=== PATIENT | male | born 1965 | race Caucasian/White ===

== ENCOUNTER 2024-06-30 19:46 | Inpatient (IN) | payer OTHER, BC ==
[~2024-06-30] VITALS: Ht 175.3 cm; Wt 74.1 kg
[2024-06-30 19:54] VITALS: BP_SYST 73; PULSE 123; RESP 25; TEMP 98; O2SAT 92
[2024-06-30] MEDS: NACL 0.9% 1,000 ML IV ONE ×2 (20:06→20:56)
[2024-06-30] MEDS: PANTOPRAZOLE SODIUM 40 MG/VIAL (PROTONIX) IVP ONE (20:07)
[2024-06-30 20:08] LABS: BASOPHILS # (AUTO) 0.1 K/uL (0.0-0.2); BASOPHILS % (AUTO) 0.9 % (0.0-2.0); HEMATOCRIT 40.2 % (36-54); HEMOGLOBIN 13.7 g/dL (14.0-18.0); LYMPHOCYTES # (AUTO) 1.3 K/uL (1.0-5.5); MEAN CORPUSCULAR HEMOGLOBIN 33 pg (27-31); MEAN CORPUSCULAR HGB CONC 34 % (32-36); MEAN CORPUSCULAR VOLUME 97 fL (79.0-98.0); MONOCYTES # (AUTO) 1.1 K/uL (0.0-1.0); MONOCYTES % (AUTO) 14.3 % (1.7-9.3); NEUTROPHILS # (AUTO) 4.9 K/uL (1.8-7.7); NEUTROPHILS % (AUTO) 66.8 % (40.0-70.0); PLATELET COUNT (AUTO) 255 K/uL (130-430); RED BLOOD CELL COUNT(AUTO) 4.14 MIL/uL (4.2-6.2); RED CELL DISTRIBUTION WIDTH 14.8 % (9.0-15.0); WHITE BLOOD COUNT (AUTO) 7.4 K/uL (4.8-10.8)
[2024-06-30 20:29] LABS: PROTHROMBIN TIME 10.4 SECS (9.5-12.5)
[2024-06-30 20:35] LABS: ALANINE AMINOTRANSFERASE 45 U/L (12-78); ALBUMIN 3.2 g/dL (3.4-4.8); ALCOHOL, BLOOD 286 mg/dL (<10); ANION GAP 21 (5-15); ASPARTATE AMINOTRANSFERASE 67 U/L (10-37); BILIRUBIN,DIRECT 0.4 mg/dL (0.0-0.3); CALCIUM 8.3 mg/dL (8.4-11.0); CARBON DIOXIDE 21 mmol/L (23-29); CHLORIDE 102 mmol/L (98-107); CREATININE 1.08 mg/dL (0.55-1.30); GFR AFRICAN AMERICAN 90 mL/min (>90); GLUCOSE 87 mg/dL (74-106); SODIUM SERUM 144 mmol/L (136-145); TOTAL BILIRUBIN 1.4 mg/dL (0.0-1.0); TOTAL PROTEIN, SERUM 6.5 g/dL (6.4-8.3); UREA NITROGEN, BLOOD 10 mg/dL (8-21)
[2024-06-30 20:38] LABS: GFR NON AFRICAN-AMERICAN 75 mL/min (>90)
[2024-06-30 20:39] LABS: POTASSIUM 2.9 mmol/L (3.5-5.1)
[2024-06-30] MEDS ORDERED: ASPI-1393 PO (21:34)
[2024-06-30] MEDS ORDERED: APIX2.5T PO (21:34)
[2024-06-30] MEDS: POTASSIUM CHLORIDE 20 MEQ/PKT PACKET PO ONE (21:47)
[2024-06-30] MEDS: FOLIC ACID 1 MG, THIAMINE HCL 100 MG, MAGNESIUM SULFATE 1 GM, MVI 10 ML in NACL 0.9% 1,... IV ONE (22:24)
[2024-06-30] MEDS ORDERED: MVI 10 ML VIAL IV ONE (22:24)
[2024-06-30] MEDS ORDERED: MAGNESIUM SULFATE 1 GM/2 ML VIAL ONE (22:24)
[2024-06-30] MEDS ORDERED: THIAMINE HCL 200 MG/2 ML VIAL ONE (22:24)
[2024-06-30] MEDS ORDERED: FOLIC ACID 5 MG/ML VIAL IV ONE (22:24)
[2024-06-30] MEDS ORDERED: ONDANSETRON HCL 4 MG/2 ML VIAL IVP PRN (22:45)
[2024-06-30] MEDS: POTASSIUM CHLORIDE 20 MEQ TABLET.ER PO ONE (22:54)
[2024-06-30] MEDS: chlordiazePOXIDE HCL 10 MG CAPSULE PO SCH (23:18)
[2024-06-30] MEDS: APIXABAN 2.5 MG TABLET PO SCH (23:21)
[2024-07-01 00:26] VITALS: BP_SYST 126; PULSE 99; RESP 18; TEMP 98.8
[2024-07-01 00:33] LABS: BILIRUBIN,URINE NEGATIVE (NEGATIVE); BLOOD, URINE NEGATIVE (NEGATIVE); CLARITY/URINE CLEAR (CLEAR); COLOR,URINE YELLOW (YELLOW); GLUCOSE,URINE NEGATIVE (NEGATIVE); KETONES,URINE 2+ (NEGATIVE); LEUKOCYTE ESTERASE ,URINE NEGATIVE (NEGATIVE); NITRITE, URINE NEGATIVE (NEGATIVE); PROTEIN URINE TRACE (NEGATIVE)
[2024-07-01 00:45] LABS: BACTERIA,URINE None Seen /HPF (None Seen); RBC,URINE 0-3 /HPF (0-3); WBC,URINE 0-3 /HPF (0-3)
[2024-07-01 06:27] LABS: BASOPHILS % (AUTO) 0.5 % (0.0-2.0); EOSINOPHILS % (AUTO) 0.2 % (0.0-4.0); HEMATOCRIT 37.4 % (36-54); HEMOGLOBIN 12.5 g/dL (14.0-18.0); LYMPHOCYTES % (AUTO) 22.5 % (20.5-51.5); MEAN CORPUSCULAR HEMOGLOBIN 33 pg (27-31); MEAN CORPUSCULAR HGB CONC 33 % (32-36); MEAN CORPUSCULAR VOLUME 99 fL (79.0-98.0); MONOCYTES # (AUTO) 1.3 K/uL (0.0-1.0); MONOCYTES % (AUTO) 14.9 % (1.7-9.3); NEUTROPHILS # (AUTO) 5.6 K/uL (1.8-7.7); NEUTROPHILS % (AUTO) 61.9 % (40.0-70.0); PLATELET COUNT (AUTO) 233 K/uL (130-430); RED CELL DISTRIBUTION WIDTH 14.9 % (9.0-15.0)
[2024-07-01 06:35] LABS: ALBUMIN 2.8 g/dL (3.4-4.8); CALCIUM 7.4 mg/dL (8.4-11.0); CREATININE 0.71 mg/dL (0.55-1.30); POTASSIUM 3.6 mmol/L (3.5-5.1); TOTAL BILIRUBIN 1.4 mg/dL (0.0-1.0); TOTAL PROTEIN, SERUM 5.8 g/dL (6.4-8.3)
[2024-07-01 07:40] VITALS: BP_SYST 161; PULSE 93; RESP 18; TEMP 99; O2SAT 99
[2024-07-01] MEDS: FAMOTIDINE 20 MG TABLET PO SCH (08:45)
[2024-07-01] MEDS: ASPIRIN 81 MG TABLET(ECOTRIN) PO SCH (08:45)
[2024-07-01] MEDS: THIAMINE HCL 100 MG TABLET PO SCH (08:45)
[2024-07-01] MEDS: FOLIC ACID 1 MG TABLET PO SCH (08:45)
[2024-07-01 12:38] VITALS: BP_SYST 168; PULSE 100; RESP 18; TEMP 98.3; O2SAT 100
[2024-07-01] MEDS ORDERED: cloNIDine HCL 0.1 MG TABLET PO PRN (13:00)
[2024-07-01] MEDS: METOPROLOL TARTRATE 50 MG TABLET PO SCH (13:13)
[2024-07-01] MEDS ORDERED: ACETAMINOPHEN 650 MG SUPP.RECT RC PRN ×2 (15:00)
[2024-07-01] MEDS ORDERED: ACETAMINOPHEN 325 MG TABLET PO PRN ×2 (15:00)
[2024-07-01 16:00] VITALS: BP_SYST 152; PULSE 86; RESP 18; TEMP 97.8; O2SAT 96
[2024-07-01] MEDS: chlordiazePOXIDE HCL 25 MG CAPSULE PO SCH (16:21)
[2024-07-01 20:20] VITALS: BP_SYST 154; PULSE 84; RESP 20; TEMP 97.1; O2SAT 97
[2024-07-01 22:20] VITALS: O2SAT 97
[2024-07-02 01:26] VITALS: BP_SYST 159; PULSE 78; RESP 18; TEMP 97.5; O2SAT 96
[2024-07-02 06:54] LABS: BASOPHILS % (AUTO) 0.5 % (0.0-2.0); EOSINOPHILS % (AUTO) 0.4 % (0.0-4.0); HEMATOCRIT 40.2 % (36-54); HEMOGLOBIN 13.5 g/dL (14.0-18.0); LYMPHOCYTES # (AUTO) 1.2 K/uL (1.0-5.5); LYMPHOCYTES % (AUTO) 17.5 % (20.5-51.5); MEAN CORPUSCULAR HEMOGLOBIN 33 pg (27-31); MEAN CORPUSCULAR HGB CONC 34 % (32-36); MEAN CORPUSCULAR VOLUME 99 fL (79.0-98.0); MONOCYTES # (AUTO) 1.1 K/uL (0.0-1.0); NEUTROPHILS # (AUTO) 4.7 K/uL (1.8-7.7); NEUTROPHILS % (AUTO) 66.6 % (40.0-70.0); PLATELET COUNT (AUTO) 219 K/uL (130-430); RED BLOOD CELL COUNT(AUTO) 4.07 MIL/uL (4.2-6.2)
[2024-07-02 07:11] LABS: ALBUMIN 3.1 g/dL (3.4-4.8); CALCIUM 8.8 mg/dL (8.4-11.0); CREATININE 0.76 mg/dL (0.55-1.30); POTASSIUM 3.3 mmol/L (3.5-5.1); TOTAL BILIRUBIN 1.6 mg/dL (0.0-1.0); TOTAL PROTEIN, SERUM 6.7 g/dL (6.4-8.3)
[2024-07-02 08:00] VITALS: BP_SYST 139; PULSE 85; RESP 17; TEMP 98; O2SAT 97
[2024-07-02 11:01] VITALS: BP_SYST 133; PULSE 76; RESP 16; TEMP 97.7; O2SAT 97
[2024-07-02] MEDS: POTASSIUM CHLORIDE 20 MEQ TABLET.ER PO ONE (11:44)
[2024-07-02 15:02] VITALS: BP_SYST 123; PULSE 67; RESP 16; TEMP 97.7; O2SAT 98
[2024-07-02 20:00] VITALS: BP_SYST 132; PULSE 85; RESP 18; TEMP 98.8; O2SAT 96
[2024-07-02] MEDS: MULTIVITAMINS TAB 1 TABLET PO SCH (20:06)
[2024-07-02] MEDS: LORazepam 2 MG/ML VIAL IVP PRN (23:08)
[2024-07-03] VITALS: BP_SYST 139; RESP 18; TEMP 98; O2SAT 97
[2024-07-03] MEDS: HALOPERIDOL LACTATE 5 MG/ML VIAL IM PRN (01:25)
[2024-07-03 08:00] VITALS: BP_SYST 138; PULSE 67; RESP 17; TEMP 97.8; O2SAT 99
[2024-07-03 08:28] LABS: BASOPHILS % (AUTO) 0.7 % (0.0-2.0); EOSINOPHILS % (AUTO) 0.6 % (0.0-4.0); HEMATOCRIT 40.4 % (36-54); HEMOGLOBIN 13.6 g/dL (14.0-18.0); LYMPHOCYTES # (AUTO) 1.2 K/uL (1.0-5.5); LYMPHOCYTES % (AUTO) 19.3 % (20.5-51.5); MEAN CORPUSCULAR HEMOGLOBIN 33 pg (27-31); MEAN CORPUSCULAR HGB CONC 34 % (32-36); MEAN CORPUSCULAR VOLUME 99 fL (79.0-98.0); MONOCYTES # (AUTO) 0.9 K/uL (0.0-1.0); MONOCYTES % (AUTO) 13.8 % (1.7-9.3); NEUTROPHILS # (AUTO) 4.2 K/uL (1.8-7.7); NEUTROPHILS % (AUTO) 65.6 % (40.0-70.0); PLATELET COUNT (AUTO) 193 K/uL (130-430); RED BLOOD CELL COUNT(AUTO) 4.07 MIL/uL (4.2-6.2); RED CELL DISTRIBUTION WIDTH 14.7 % (9.0-15.0); WHITE BLOOD COUNT (AUTO) 6.4 K/uL (4.8-10.8)
[2024-07-03 08:38] VITALS: O2SAT 100
[2024-07-03 08:54] LABS: ALBUMIN 3.1 g/dL (3.4-4.8); CALCIUM 9.1 mg/dL (8.4-11.0); CREATININE 0.74 mg/dL (0.55-1.30); POTASSIUM 3.5 mmol/L (3.5-5.1); TOTAL PROTEIN, SERUM 6.7 g/dL (6.4-8.3)
[2024-07-03] MEDS: POTASSIUM CHLORIDE 20 MEQ TABLET.ER PO SCH (08:56)
[2024-07-03 11:09] VITALS: BP_SYST 135; PULSE 78; RESP 16; TEMP 97.7; O2SAT 96
[2024-07-03] MEDS: chlordiazePOXIDE HCL 25 MG CAPSULE PO SCH (12:46)
[2024-07-03] MEDS: MAGNESIUM SULFATE 50 ML IV ONE (12:47)
[2024-07-03 15:29] VITALS: BP_SYST 132; PULSE 69; RESP 16; TEMP 97.1; O2SAT 99
[2024-07-03 20:00] VITALS: BP_SYST 118; PULSE 63; RESP 18; TEMP 98; O2SAT 97
[2024-07-04 00:30] VITALS: BP_SYST 146; PULSE 85; RESP 19; TEMP 98; O2SAT 98
[2024-07-04 11:15] VITALS: BP_SYST 150; PULSE 96; RESP 16; TEMP 98.7; O2SAT 99
[2024-07-04 14:35] VITALS: BP_SYST 132; PULSE 103; RESP 16; TEMP 98.8; O2SAT 97
[2024-07-04 15:04] VITALS: BP_SYST 142; PULSE 82; RESP 15; TEMP 97.7; O2SAT 93
[2024-07-04 20:00] VITALS: BP_SYST 154; PULSE 91; RESP 16; TEMP 98.8; O2SAT 94; O2SAT 97
[2024-07-04] MEDS: HALOPERIDOL 5 MG TABLET (HALDOL) PO SCH (21:12)
[2024-07-05 06:56] LABS: BASOPHILS % (AUTO) 0.8 % (0.0-2.0); HEMATOCRIT 42.3 % (36-54); HEMOGLOBIN 14.2 g/dL (14.0-18.0); LYMPHOCYTES # (AUTO) 1.1 K/uL (1.0-5.5); MEAN CORPUSCULAR HEMOGLOBIN 33 pg (27-31); MEAN CORPUSCULAR HGB CONC 34 % (32-36); MEAN CORPUSCULAR VOLUME 99 fL (79.0-98.0); MONOCYTES # (AUTO) 0.8 K/uL (0.0-1.0); MONOCYTES % (AUTO) 17.1 % (1.7-9.3); NEUTROPHILS # (AUTO) 2.7 K/uL (1.8-7.7); NEUTROPHILS % (AUTO) 57.1 % (40.0-70.0); PLATELET COUNT (AUTO) 232 K/uL (130-430); RED BLOOD CELL COUNT(AUTO) 4.26 MIL/uL (4.2-6.2); RED CELL DISTRIBUTION WIDTH 14.8 % (9.0-15.0); WHITE BLOOD COUNT (AUTO) 4.8 K/uL (4.8-10.8)
[2024-07-05 07:20] LABS: ALBUMIN 3.1 g/dL (3.4-4.8); CALCIUM 9.2 mg/dL (8.4-11.0); CREATININE 0.68 mg/dL (0.55-1.30); POTASSIUM 3.9 mmol/L (3.5-5.1); TOTAL BILIRUBIN 0.9 mg/dL (0.0-1.0); TOTAL PROTEIN, SERUM 7.2 g/dL (6.4-8.3)
[2024-07-05 08:50] VITALS: O2SAT 97
[2024-07-05 11:17] VITALS: BP_SYST 141; PULSE 88; RESP 16; TEMP 97.7; O2SAT 96
[2024-07-05] MEDS: HYDROmorphone 2 MG/ML VIAL ONE (14:51)
[2024-07-05 15:25] VITALS: BP_SYST 125; PULSE 76; RESP 16; TEMP 96.3; O2SAT 93
[2024-07-05 20:00] VITALS: BP_SYST 123; PULSE 86; RESP 16; TEMP 97.6; O2SAT 98
[2024-07-05] MEDS: HALOPERIDOL 5 MG TABLET (HALDOL) PO SCH (20:25)
[2024-07-05] MEDS: chlordiazePOXIDE HCL 25 MG CAPSULE PO SCH (20:26)
[2024-07-06] VITALS: BP_SYST 108; PULSE 77; RESP 18; O2SAT 96
[2024-07-06 07:23] LABS: BASOPHILS % (AUTO) 0.6 % (0.0-2.0); EOSINOPHILS # (AUTO) 0.1 K/uL (0.0-0.4); HEMOGLOBIN 14.6 g/dL (14.0-18.0); LYMPHOCYTES # (AUTO) 1.5 K/uL (1.0-5.5); LYMPHOCYTES % (AUTO) 23.6 % (20.5-51.5); MEAN CORPUSCULAR HEMOGLOBIN 33 pg (27-31); MEAN CORPUSCULAR HGB CONC 33 % (32-36); MEAN CORPUSCULAR VOLUME 99 fL (79.0-98.0); MONOCYTES # (AUTO) 1.1 K/uL (0.0-1.0); MONOCYTES % (AUTO) 18.5 % (1.7-9.3); NEUTROPHILS # (AUTO) 3.5 K/uL (1.8-7.7); NEUTROPHILS % (AUTO) 56.3 % (40.0-70.0); PLATELET COUNT (AUTO) 271 K/uL (130-430); RED BLOOD CELL COUNT(AUTO) 4.46 MIL/uL (4.2-6.2); WHITE BLOOD COUNT (AUTO) 6.2 K/uL (4.8-10.8)
[2024-07-06 08:00] VITALS: BP_SYST 114; PULSE 69; RESP 16; TEMP 97.2; O2SAT 97
[2024-07-06 08:01] LABS: ALBUMIN 3.1 g/dL (3.4-4.8); CALCIUM 9.2 mg/dL (8.4-11.0); CREATININE 0.79 mg/dL (0.55-1.30); POTASSIUM 3.9 mmol/L (3.5-5.1); TOTAL BILIRUBIN 0.7 mg/dL (0.0-1.0); TOTAL PROTEIN, SERUM 7.1 g/dL (6.4-8.3)
[2024-07-06 09:30] VITALS: O2SAT 97
[2024-07-06 12:40] VITALS: BP_SYST 126; PULSE 77; RESP 18; TEMP 97.3; O2SAT 96
[2024-07-06 16:25] VITALS: BP_SYST 146; BP_SYST 147; PULSE 84; RESP 24; O2SAT 96
[2024-07-06 20:00] VITALS: BP_SYST 128; PULSE 85; RESP 18; TEMP 97.5; O2SAT 96
[2024-07-06] MEDS: BENZTROPINE MESYLATE 1 MG TABLET PO SCH (20:32)
[2024-07-06] MEDS ORDERED: QUEtiapine FUMARATE 25 MG TABLET PO SCH (21:00)
[2024-07-07 00:05] VITALS: BP_SYST 130; PULSE 85; RESP 18; TEMP 98.8; O2SAT 97
[2024-07-07] MEDS: QUEtiapine FUMARATE 25 MG TABLET PO ONE (00:16)
[2024-07-07 07:49] VITALS: O2SAT 99
[2024-07-07 12:35] VITALS: BP_SYST 111; PULSE 75; RESP 18; TEMP 97.5; O2SAT 95
[2024-07-07 16:41] VITALS: BP_SYST 120; PULSE 83; RESP 16; TEMP 96.8; O2SAT 97
[2024-07-07] MEDS: chlordiazePOXIDE HCL 25 MG CAPSULE PO SCH (17:18)
[2024-07-07] MEDS: QUEtiapine FUMARATE 25 MG TABLET PO SCH (17:20)
[2024-07-07 20:00] VITALS: BP_SYST 136; PULSE 80; RESP 17; TEMP 96.5; O2SAT 97
[2024-07-08] VITALS (7 sets, daily range): BP systolic 114–135; PULSE 78–99; RESP 15–18; TEMP 96.6–98.6; O2SAT 95–100
[2024-07-09] VITALS: BP_SYST 111; PULSE 84; RESP 18; TEMP 97.3
[2024-07-09 08:45] VITALS: BP_SYST 111; PULSE 76; RESP 16; TEMP 96.9; O2SAT 95
[2024-07-09 16:25] VITALS: BP_SYST 125; PULSE 81; RESP 16; TEMP 96.8; O2SAT 95
[2024-07-09 20:28] VITALS: BP_SYST 132; PULSE 74; TEMP 96.3; O2SAT 98
[2024-07-10 00:25] VITALS: BP_SYST 122; PULSE 75; RESP 16; TEMP 96.6; O2SAT 98
[2024-07-10 04:37] VITALS: BP_SYST 134; PULSE 81; TEMP 97; O2SAT 97
[2024-07-10 07:45] VITALS: BP_SYST 133; PULSE 83; RESP 16; TEMP 97.6; O2SAT 98
[2024-07-10 11:07] VITALS: BP_SYST 121; PULSE 81; RESP 20; TEMP 97.7; O2SAT 97
[2024-07-10 16:09] VITALS: BP_SYST 115; PULSE 86; RESP 18; TEMP 97.8; O2SAT 97
[2024-07-10] MEDS: QUEtiapine FUMARATE 25 MG TABLET PO SCH (18:15)
[2024-07-10 20:00] VITALS: BP_SYST 121; PULSE 80; RESP 15; TEMP 97.5; O2SAT 98
[2024-07-11 00:35] VITALS: BP_SYST 126; PULSE 86; RESP 20; TEMP 96.4
[2024-07-11 10:30] VITALS: O2SAT 95
[2024-07-11 11:35] VITALS: BP_SYST 109; PULSE 91; RESP 16; TEMP 98.1; O2SAT 96
[2024-07-11 15:17] VITALS: BP_SYST 115; PULSE 88; RESP 16; TEMP 97.6; O2SAT 93
[2024-07-11 17:39] LABS: ALBUMIN 3.6 g/dL (3.4-4.8); CALCIUM 9.9 mg/dL (8.4-11.0); CREATININE 1.43 mg/dL (0.55-1.30); POTASSIUM 4.7 mmol/L (3.5-5.1); TOTAL BILIRUBIN 0.7 mg/dL (0.0-1.0); TOTAL PROTEIN, SERUM 7.8 g/dL (6.4-8.3)
[2024-07-11 17:45] LABS: BASOPHILS # (AUTO) 0.1 K/uL (0.0-0.2); BASOPHILS % (AUTO) 1.4 % (0.0-2.0); EOSINOPHILS % (AUTO) 0.3 % (0.0-4.0); HEMATOCRIT 46.6 % (36-54); LYMPHOCYTES % (AUTO) 15.1 % (20.5-51.5); MEAN CORPUSCULAR HEMOGLOBIN 34 pg (27-31); MEAN CORPUSCULAR HGB CONC 34 % (32-36); MEAN CORPUSCULAR VOLUME 97 fL (79.0-98.0); MONOCYTES # (AUTO) 1.2 K/uL (0.0-1.0); MONOCYTES % (AUTO) 19.3 % (1.7-9.3); NEUTROPHILS # (AUTO) 4.1 K/uL (1.8-7.7); NEUTROPHILS % (AUTO) 63.9 % (40.0-70.0); PLATELET COUNT (AUTO) 448 K/uL (130-430); RED BLOOD CELL COUNT(AUTO) 4.79 MIL/uL (4.2-6.2); RED CELL DISTRIBUTION WIDTH 14.6 % (9.0-15.0); WHITE BLOOD COUNT (AUTO) 6.5 K/uL (4.8-10.8)
[2024-07-11 17:48] LABS: THYROID STIMULATING HORMONE 1.67 uIu/mL (0.36-3.74)
[2024-07-11 17:54] VITALS: PULSE 88; TEMP 97.5
[2024-07-11] MEDS ORDERED: SER25 PO (18:34)
[2024-07-11] MEDS ORDERED: FOLI-43 PO (18:34)
[2024-07-11] MEDS ORDERED: METO-442 PO (18:34)
[2024-07-11] MEDS ORDERED: MULT400T13 PO (18:34)
[2024-07-11] MEDS ORDERED: Thiamine Hcl PO (18:34)
== END 2024-07-11 18:36 | disposition home health service (06) | DRG 917 ==
LOC: SED 19:46 → STU 21:38 → SMU 07-03 10:52
PROVIDERS: ADMIT Internal Medicine; ATTEND Internal Medicine
DX: T51.0X1A Toxic effect of ethanol, accidental (unintentional), initial encounter (principal); G92.8 Other toxic encephalopathy; F23 Brief psychotic disorder; R11.2 Nausea with vomiting, unspecified; F10.129 Alcohol abuse with intoxication, unspecified; I73.9 Peripheral vascular disease, unspecified; E87.6 Hypokalemia; J44.9 Chronic obstructive pulmonary disease, unspecified; I10 Essential (primary) hypertension; Z79.899 Other long term (current) drug therapy; Z88.8 Allergy status to other drugs, medicaments and biological substances; Z86.718 Personal history of other venous thrombosis and embolism; Z87.891 Personal history of nicotine dependence; Y92.9 Unspecified place or not applicable
CPT/HCPCS: 36415; 71045; 80048; 80053; 80076; 81000; 81001; 81015; 83605; 83735; 83880; 84439; 84443; 84484; 85025; 85379; 85610; 85730; 93005; 96365; 97110-GP; 97116-GP; 97530-GP; 99285; G0378; G0482; J1170; J1630; J2060; J2470; J3411; J3475; J3490; J7030